=== PATIENT | female | born 1955 | race Two or more races ===

== ENCOUNTER 2018-11-20 22:43 | Emergency (ER) | payer MEDICARE, OTHER ==
[~2018-11-20] VITALS: Ht 162.6 cm; Wt 63.5 kg
--- NOTE | 2018-11-20 22:53 | NUR ---
ED Nurse Note: Pt HELGA RA 59 from [facility], s/p witnessed syncopal episode, denies hitting head. BS 105 in the field, pt reports vomitting yesterday. Pt's BP is low 102/52
[2018-11-20 23:00] VITALS: BP 79/39
--- NOTE | 2018-11-20 23:00 | Emergency Room Report ---
History of Present Illness General Chief Complaint: Syncope Source: EMS Present Illness HPI Patient is a 63-year-old female brought in by EMS after reported multiple syncopal episodes. Patient had been vomiting multiple times throughout the day. She had recent alcohol intake. She reports drinking Novitaz earlier in the day. She is currently in a [facility] house. Patient states that she has been vomiting multiple times. She denies any hematemesis or bloody stools. She denies any current pain. Initally was hypotensive with blood pressure in the 70s . Meds include trazodone. Allergies: Coded Allergies: No Known Allergies (Unverified , 11/20/18) Patient History Past Medical History: see triage record Now: No Reviewed Nursing Documentation: PMH: Agreed; PSxH: Agreed Review of Systems All Other Systems: limited - by mental status Physical Exam Vital Signs Date Time Temp Pulse Resp B/P (MAP) Pulse Ox O2 Delivery O2 Flow Rate FiO2 11/20/18 22:43 97.5 88 20 79/39 (52) 98 Sp02 EP Interpretation: reviewed, normal General Appearance: normal inspection, well appearing, no apparent distress, alert, GCS 15 Head: atraumatic ENT: normal ENT inspection, hearing grossly normal, normal voice Neck: normal inspection, full range of motion, supple, no bony tend Respiratory: normal inspection, lungs clear, normal breath sounds, no respiratory distress, no retraction, no wheezing Cardiovascular #1: regular rate, rhythm, no edema Gastrointestinal: normal inspection, normal bowel sounds, non tender, soft, no guarding, no hernia Genitourinary: no CVA tenderness Musculoskeletal: normal inspection, back normal, normal range of motion Neurologic: normal inspection, alert, oriented x3, responsive, braider operator III-XII nml as tested, speech normal, other - slurred speech Psychiatric: normal inspection, judgement/insight normal, mood/affect normal Medical Decision Making Diagnostic Impression: Primary Impression: Syncope Additional Impression: Hypotensive episode ER Course Patient presented for syncope. Differential diagnosis included but not limited to syncope versus seizure. Potential causes for syncope included arrhythmia, dehydration, acute coronary syndrome, severe anemia, pulmonary embolus. Because of complexity of patient's case laboratory tests and imaging studies were ordered. Patient noted to have multiple episodes of vomiting throughout the day. The suggest the patient may be hypovolemic. Patient was noted to have recent alcohol intake. She was noted to have improvement in hypotension after IV fluids by EMS. Patient stated that she no longer wanted to remain in the hospital despite risks of worsening of condition. Patient was noted to be awake and alert. She states she is not intoxicated. She is able to ambulate with a steady gait. Patient appears to be capable of self-care. Patient left the emergency department and subsequently asked if she had any other belongings available. She was informed that she did not. Patient stated that she will continue leave the hospital. The patient was advised risk benefits alternatives of leaving AGAINST MEDICAL ADVICE and he indicated understanding and all questions are answered patient still continued want to leave and signed AGAINST MEDICAL ADVICE. Despite risks including but not limited to disability and worsening of current lifestyle. EKG Diagnostic Results Rate: normal Rhythm: NSR ST Segments: no acute changes Last Vital Signs Date Time Temp Pulse Resp B/P (MAP) Pulse Ox O2 Delivery O2 Flow Rate FiO2 11/20/18 22:43 97.5 88 20 79/39 (52) 98 Status: unchanged Disposition: ADMITTED INPATIENT Condition: Stable Evangelist Marx MD Nov 20, 2018 23:00
[2018-11-20 23:35] VITALS: BP 79/39
--- NOTE | 2018-11-20 23:35 | NUR ---
ED Nurse Note: Pt left AMA, DR Marx aware. Explained to pt the risk of leaving at this time, pt refuses to stay. verbalized understanding of risk. Pt took out IV, left with all belongings
[2018-11-20 23:39] LABS: BASOPHILS % (AUTO) 1.5 % (0.0-2.0); EOSINOPHILS % (AUTO) 1.2 % (0.0-3.0); HEMOGLOBIN 11.8 G/DL (12.0-16.0); LYMPHOCYTES % (AUTO) 46.6 % (20.0-45.0); MEAN CORPUSCULAR VOLUME 92 FL (80-99); MONOCYTES % (AUTO) 6.4 % (1.0-10.0); NEUTROPHILS % (AUTO) 44.2 % (45.0-75.0); PLATELET COUNT 107 K/UL (150-450); RED CELL DISTRIBUTION WIDTH 12.5 % (11.6-14.8); WHITE BLOOD COUNT 6.8 K/UL (4.8-10.8)
--- NOTE | 2018-11-22 15:20 | Cardiology Report ---
APPROVED REPORT EKG Measurement Heart [id number] Normal sinus rhythm Normal ECG
== END 2018-11-20 23:25 | disposition left against medical advice (07) ==
LOC: EDBD 22:43 → EMR 23:02
DX: R55 Syncope and collapse (principal); I95.9 Hypotension, unspecified
CPT/HCPCS: 85025; 93005; 96374; 99285; S0028; 36415; 86850; 86900; 86901